=== PATIENT | male | born 1965 | race Caucasian/White ===

== ENCOUNTER 2025-07-06 11:05 | Outpatient (CLI) | payer OTHER | END 2025-07-06 11:06 | disposition home or self-care (01) | LOC: BICRAD 11:05 | PROVIDERS: ATTEND Nurse Practitioner Family | DX: Z72.0 Tobacco use (principal); R91.1 Solitary pulmonary nodule; Z12.5 Encounter for screening for malignant neoplasm of prostate; Z13.29 Encounter for screening for other suspected endocrine disorder; Z13.6 Encounter for screening for cardiovascular disorders; Z79.899 Other long term (current) drug therapy | CPT/HCPCS: 71046 ==

== ENCOUNTER 2025-07-15 08:08 | Outpatient (CLI) | payer OTHER | END 2025-07-15 08:09 | disposition home or self-care (01) | LOC: BICCT 08:08 | PROVIDERS: ATTEND Nurse Practitioner Family | DX: R91.1 Solitary pulmonary nodule (principal); J43.9 Emphysema, unspecified; I70.90 Unspecified atherosclerosis; D35.02 Benign neoplasm of left adrenal gland | CPT/HCPCS: 71250 ==